=== PATIENT | female | born 1970 | race Caucasian/White ===

== ENCOUNTER 2018-12-19 07:29 | Observation (INO) | payer BC ==
[~2018-12-19] VITALS: Ht 149.9 cm; Wt 57.0 kg
[2018-12-19] VITALS (20 sets, daily range): BP systolic 114–142; BP diastolic 69–88; PULSE 63–110; RESP 11–38; Ht 149.9 cm; Wt 57.0 kg
--- NOTE | 2018-12-19 06:46 | PREOPHP ---
DATE OF ADMISSION: 12/19/2018 Scheduled for surgery 12/19/2018. HISTORY OF PRESENT ILLNESS: The patient is a 47-year-old female in overall good health who recently underwent imaging of her breasts revealing in her right breast at 4 o'clock, 3 cm from the nipple, an 8 mm mass which was suspicious. Core biopsy revealed invasive ductal carcinoma. The lesion is not palpable. It is estrogen and progesterone receptor positive and HER2 positive. The patient was seen by oncology who recommended proceeding with surgery now with further treatments depending on final p athology. The patient originally presented in 10/2017 with granulomatous mastitis of the left breast which was symptomatic and which had resolved by 05/2018. MEDICATIONS: Hydrochlorothiazide for hypertension. ALLERGIES: NONE. OPERATIONS: None. REVIEW OF SYSTEMS: 3, para 3. She has a hormone-releasing intrauterine device which her [facility] doctors was recommending changing. She does not have menstrual periods. PHYSICAL EXAMINATION: GENERAL: The patient is 5 feet 2 inches, 126 pounds. Normal vital signs. HEENT: Within normal limits. LUNGS: Clear. HEART: Regular rhythm. BREASTS: Moderate. There is no palpable mass in either breast. There was no palpable axillary or s upraclavicular lymphadenopathy. ABDOMEN: Soft. PELVIC AND RECTAL: Per primary care. EXTREMITIES: Without edema. NEUROLOGIC: Physiologic. IMPRESSION: Invasive ductal carcinoma, right breast. PLAN: Right breast partial mastectomy with preoperative needle localization and right axillary senti dora lymph node biopsy. I have had a full discussion with the patient regarding the nature of the con dition, the nature of the surgery, indications, alternatives, options, and risks including bleeding, infection, injury to adjacent structures or organs, neuritis or neuralgia, breast scarring and deform ity of breast and/or nipple, need for additional surgery based on final pathology, need for additiona l other treatments based on final pathology, etc. All questions have been answered. She understands and agrees to proceed. Dictated By: SAQIB GREENBERG/BERNADETTE Conf#: [id number] DID#: [id number]
[2018-12-19] MEDS ORDERED: SOD CHLORIDE 0.9% 1,000 ML IV SCH (08:00)
[2018-12-19] MEDS ORDERED: HYDR12.58 PO (08:11)
[2018-12-19] MEDS ORDERED: ISOSULFAN BLUE 1% 5 ML INJ SC ONE (08:49)
--- NOTE | 2018-12-19 08:54 | PREAC ---
Date/Time of Note Date/Time of Note DATE: 12/19/18 TIME: 08:54 Anesthesia Eval and Record Evaluation Time Pre-Procedure Interview DATE: 12/19/18 TIME: 08:54 Age 47 Sex male NPO: 8 hrs Preoperative diagnosis ductal carcinoma Planned procedure right partial mastectomy Past Medical History Past Medical History: Includes Cardio: HTN Surgery & Anesthesia Issues No known issue Meds Anticoagulation: No Beta Lisette within 24 hr: No Reason Beta Lisette not given: Pt. not on B-Lisette Reported Medications Hydrochlorothiazide* (Hydrochlorothiazide*) 12.5 Mg Tablet, 12.5 MG PO DAILY, #30 TAB 12/19/18 Current Medications Sodium Chloride 1,000 ml @ 75 mls/hr [id number] IV Last administered on 12/19/18at 08:32; Admin Dose 75 MLS/HR; Start 12/19/18 at 08:00 Meds reviewed: Yes Allergies Coded Allergies: No Known Allergy (Unverified , 12/19/18) Allergies Reviewed: Yes Labs/Studies Labs Reviewed: Reviewed by anesthesiologist test: Negative Studies: ECG (SB), CXR (NAD) Pre-procedure Exam Last vitals Vital Signs Date Temp Pulse Resp B/P (MAP) Pulse Ox O2 O2 Flow FiO2 Time Delivery Rate 12/19/18 98.3 73 16 131/82 99 08:38 (98) Airway: Adequate mouth opening, Adequate thyromental dist Mallampati: Mallampati II Teeth: Normal Lung: Normal Heart: Normal ASA Physical Status ASA physical status: 2 Emergency: None Planned Anesthetic General/MAC: LMA Pre-operative Attestations Prior to commencing anesthesia and surgery, the patient was re-evaluated, there was verification of: *The patient's identity *The results of appropriate recent lab work and preoperative vital signs *The above evaluation not changing prior to induction *Anesthetic plan, risk benefits, alternative and complications discussed with patient/family; questions answered; patient/family understands, accepts and wishes to proceed. SEAN GAN GLASS BLOCK BENDER Dec 19, 2018 08:54
--- NOTE | 2018-12-19 11:38 | HPN ---
Date/Time of Note Date/Time of Note DATE: 12/19/18 TIME: 11:38 Interval H&P Admission Note Pt. seen H&P reviewed: No system changes SAQIB LATHAM Dec 19, 2018 11:38
[2018-12-19] MEDS ORDERED: ONDANSETRON 4 MG INJ IV PRN ×3 (12:00→22:00)
[2018-12-19] MEDS ORDERED: FENTAnyl 50 MCG/ML VIAL IV PRN ×3 (12:00)
[2018-12-19] MEDS ORDERED: MEPERIDINE 25 MG INJ IV PRN (12:00)
[2018-12-19] MEDS ORDERED: DIPHENHYDRAMINE 50 MG INJ IV PRN (12:00)
[2018-12-19] MEDS ORDERED: ALBUTEROL 0.083% (NEB) 2.5 MG/3 ML AMP HHN PRN (12:00)
[2018-12-19] MEDS ORDERED: FENTAnyl 50 MCG/ML VIAL ONE (12:00)
[2018-12-19] MEDS ORDERED: HYDROmorphONE 1 MG/5 ML IV SYRINGE IV PRN ×3 (12:00)
[2018-12-19] MEDS ORDERED: METOCLOPRAMIDE 10 MG INJ IV PRN (12:00)
[2018-12-19] MEDS ORDERED: SUCCINYLCHOLINE CHLORIDE 100 MG/5 ML SYG IV ONE (13:08)
[2018-12-19] MEDS ORDERED: PROPOFOL 20 ML ONE (13:08)
[2018-12-19] MEDS ORDERED: SUGAMMADEX SODIUM 200 MG/2 ML VIAL IV ONE (13:08)
[2018-12-19] MEDS ORDERED: ROCURONIUM 50 MG INJ ONE (13:08)
[2018-12-19] MEDS ORDERED: LIDOCAINE 100 MG SYRINGE ONE (13:08)
[2018-12-19] MEDS ORDERED: CEFAZOLIN 1 GM INJ ONE (13:08)
--- NOTE | 2018-12-19 13:41 | SIPON ---
Date/Time of Note Date/Time of Note DATE: 12/19/18 TIME: 13:38 Operative Report Preoperative Diagnosis carcinoma right breast Postoperative Diagnosis same Operation/Procedure Performed right breast partial mastectomy with pre-op needle localization and right axillary sentinel lymph node biopsy Surgeon see signature line infertility medical assistant none Anesthesia: general Estimated blood loss: minimal Transfusion Required none Specimen right breast cancer; right axillary lymph nodes Grafts/Implants none Complications none SAQIB LATHAM Dec 19, 2018 13:41
[2018-12-19] MEDS: CEFAZOLIN 2 GM/50 ML (PMX) 50 ML IVPB SCH ×2 (13:53→22:04)
[2018-12-19] MEDS ORDERED: HYDROmorphONE 1 MG/ML SYG SC PRN (14:00)
[2018-12-19] MEDS ORDERED: HYDROCODONE/APAP (5/325) TAB PO PRN (14:00)
[2018-12-19] MEDS ORDERED: DIPHENHYDRAMINE 25 MG CAP PO PRN (14:00)
[2018-12-19] MEDS ORDERED: HYDROmorphONE 1 MG/ML SYG IV PRN ×2 (15:00→18:00)
--- NOTE | 2018-12-19 15:07 | OPR ---
DATE OF OPERATION: 12/19/2018 SURGEON: Saqib Gómez MD MET[employer]ORAGE WORKER: None. ANESTHESIOLOGIST: Dr. De Paz. TYPE OF ANESTHESIA: General. PREOPERATIVE DIAGNOSIS: Invasive ductal carcinoma, right breast. POSTOPERATIVE DIAGNOSIS: Invasive ductal carcinoma, right breast. OPERATION PERFORMED: Right breast partial mastectomy with preoperative needle localization and right axillary sentinel lymph node biopsy and excision of additional nodes. DESCRIPTION OF PROCEDURE: The patient was taken to the operating room and under general anesthesia, with sequential compression device stockings in place, she was prepped and draped in the usual fashion. Before prepping, I had injected 3 mL of Lymphazurin at 10 o'clock at the areolar border, subdermal. The lesion was located in the medial breast several centimeters from the nipple. A radial incision was made, achieving hemostasis with cautery and dissecting flaps circumferentially. The localization wire was brought into the field. The appropriate sector of breast tissue was resected with cautery orienting the tissue with suture markers anterior, medial and superior. Specimen radiograph was obtained confirming the presence of the lesion and the tissue was then given to pathology. Hemostasis was carefully achieved with cautery following irrigation. The incision was closed with interrupted 3-0 Vicryl, deep dermal subcutaneous sutures and skin closed with continuous 4-0 Monocryl subcuticular suture. Then, a vertical right axillary incision was made, achieving hemostasis with cautery and incising the clavipectoral fascia. The sentinel node was readily identified with an adjacent small node and these were resected using a LigaSure electrocautery device. An additional quite enlarged palpable node was found and also resected. These were given to pathology who said grossly there was no evidence of tumor involvement. The field was irrigated and hemostasis secured with cautery. Through a separate stab incision inferolaterally a large flat Salomon-Hernandez drain was placed into the axilla and sutured to the skin with a 2-0 nylon suture. The incision was closed by using 3-0 Vicryl interrupted sutures on the clavipectoral fascia and 3-0 Vicryl subcutaneous sutures. The skin was closed with continuous 4-0 Monocryl subcuticular suture. Mastisol and 1/2-inch Steri-Strips were applied to both incisions followed by dry sterile dressing. Final sponge and needle counts were correct. The patient tolerated the procedure well and left the operating room in good condition. Dictated By: SAQIB GREENBERG/BERNADETTE Conf#: [id number] DID#: [id number] MTDD
[2018-12-19] MEDS: D5W-0.45 NACL + KCL 20 MEQ 1,000 ML IV SCH (15:29)
[2018-12-19] MEDS ORDERED: PROCHLORPERAZINE 10 MG INJ IV ONE (19:50)
[2018-12-19] MEDS ORDERED: PROCHLORPERAZINE 10 MG INJ IV PRN (20:00)
[2018-12-20] VITALS: BP 115/65; PULSE 78
[2018-12-20] MEDS: D5W-0.45 NACL + KCL 20 MEQ 1,000 ML IV SCH ×2 (02:48)
[2018-12-20] MEDS: ACETAMINOPHEN 325 MG TAB PO PRN ×2 (02:52→09:49)
[2018-12-20] MEDS: CEFAZOLIN 2 GM/50 ML (PMX) 50 ML IVPB SCH (06:34)
[2018-12-20 07:22] VITALS: BP 103/60; PULSE 75; RESP 14
--- NOTE | 2018-12-20 08:24 | PN ---
Date/Time of Note Date/Time of Note DATE: 12/20/18 TIME: 08:21 Assessment/Plan Lines/Catheters IV Catheter Type (from Nrsg): Peripheral IV Nickerson in Place (from Nrsg): No Subjective Detailed Summary Free Text/Dictation AVSS Had severe nausea yesterday evening requiring Compazine IV as well as Zofran - then resolved. Required Dilaudid SQ x 1 Patient has not been out of bed and has not voided since last evening but feels the urge to void Right breast and axillary incisions clean and dry with intact steristrips. BEHZAD 15cc serosang Imp: Stable Plan: If patient voids qs and tolerates ambulation and tolerates breakfast with discharge - if not will require bladder scan, labs, remain in hospital Instructions/limitations/supplies provided/discussed Rx [place] 5/325 #30 F/U office 12/23 Exam/Review of Systems Vital Signs Vitals Vital Signs Date Temp Pulse Resp B/P (MAP) Pulse Ox O2 O2 Flow FiO2 Time Delivery Rate 12/20/18 98.9 75 14 103/60 98 Room Air 07:22 (74) 12/19/18 6.0 13:47 Intake and Output 12/19/18 12/19/18 12/20/18 1515:00 23:00 07:00 IntakeIntake Total 800 ml 350 ml 900 ml OutputOutput Total 20 ml 5 ml BalanceBalance 780 ml 345 ml 900 ml SAQIB LATHAM Dec 20, 2018 08:24
== END 2018-12-20 14:05 | disposition home or self-care (01) ==
LOC: EDSEX 07:29 → SDS 07:29 → REC 13:38 → MS1 14:45
PROVIDERS: ADMIT Surgery; ATTEND Surgery
DX: C50.311 Malignant neoplasm of lower-inner quadrant of right female breast (principal); Z17.0 Estrogen receptor positive status [ER+]; I10 Essential (primary) hypertension
CPT/HCPCS: 19301; 38525; 38900; 88307; 88331; J0690; J0780; J1170; J2001; J2405; J3010; J3480; Z7500; Z7512; Z7610; G0378; Q9968